=== PATIENT | female | born 1970 | race Native Hawaiian/Other Pacific Islander ===

== ENCOUNTER 2016-08-01 15:41 | Outpatient (CLI) | payer BC | END 2016-08-01 17:00 | disposition home or self-care (01) | LOC: MAMMO 15:41 | DX: Z12.31 Encounter for screening mammogram for malignant neoplasm of breast (principal) | CPT/HCPCS: G0202-TC ==

== ENCOUNTER 2017-11-07 16:01 | Outpatient (CLI) | payer BC | END 2017-11-07 23:59 | disposition home or self-care (01) | LOC: MAMMO 16:01 | DX: Z12.31 Encounter for screening mammogram for malignant neoplasm of breast (principal) ==

== ENCOUNTER 2018-11-20 08:46 | Outpatient (CLI) | payer BC | END 2018-11-20 19:55 | disposition home or self-care (01) | LOC: RAD 08:46 | DX: M79.605 Pain in left leg (principal) ==